=== PATIENT | female | born 1945 | race Caucasian/White ===

== ENCOUNTER → 2017-02-06 | Day surgery (SDC) | payer OTHER ==
[~2017-02-06] MED LIST: ALLEGRA PO; ASPIRIN81 MG PO; FISH OIL 1,0001 EAC1 PO; FLONASE 0.05% N16 G1; LISINOPRIL10 MG PO; MOBIC15 MG PO; MONTELUKAST SOD10 MG PO; MUCUS RELIEF C400 MG PO; NATURAL VITA400 UNI2 PO; NIACIN ER500 MG PO; PULMICORT0.25 MG/2 INH; SIMVASTATIN40 MG PO; STOOL SOFTENER100 M1 PO; VITAMIN B-COMP1 EAC2 PO; VITAMIN D-32000 UNI2 PO
--- NOTE | ~2017-02-06 | OR ---
Unit #: [id number] #: [id number] Patient: NICHOLE SHAIKH [id number] [address] [place], [place] [address] [id number] MR#: [id number] NAME: NICHOLE SHAIKH ROOM: Date of Procedure: 02/06/2017 Admission Date: 02/06/2017 Surgeon: Angel Ely M.D. : 1945 Attending Physician: Angel Ely M.D. Primary Care Physician: Ulysses Parra M.D. OPERATIVE REPORT PREOPERATIVE DIAGNOSIS Screening colonoscopy. POSTOPERATIVE DIAGNOSES 1. Rare sigmoid diverticulum. 2. Rectal polyp less than 0.2 cm. PROCEDURE PERFORMED 1. Colonoscopy to cecum. 2. Cold biopsy excision of rectal polyp. ANESTHESIA IV sedation. COMPLICATIONS None. INDICATIONS The patient is a 71-year-old lady, who presents for screening colonoscopy. DESCRIPTION OF PROCEDURE The patient was taken to the operative theater and placed in left lateral decubitus position. IV sedation was initiated. Digital rectal exam was normal. Colonoscope was then passed under direct vision and navigated to the cecum. The patient had excellent prep. I visualized the entire colon. She had rare diverticulum throughout the colon. A small polyp less than 0.2 cm in the rectum. This was removed in its entirety with cold biopsy. Hemostasis was adequate. The patient tolerated the procedure well and sent to recovery room in good condition. PLAN We will follow up on biopsy. We will continue with Colace on a daily basis. Dictated by... Jyoti Valle/aide TD: 02/06/2017 16:58 Unit #: [id number] #: [id number] Patient: NICHOLE SHAIKH JOB #: [id number] OPERATIVE REPORT Page 1 of 1 X Angel Ely MD X PROCEDURE OPERATIVE NOTE
== END | disposition home or self-care (01) ==
LOC: COPS 10:24
PROVIDERS: Surgery
PROC: 0DBP8ZX Excision of Rectum, Via Natural or Artificial Opening Endoscopic, Diagnostic (ICD-10-PCS; principal; 2017-02-06 12:30)
DX: Z12.11 Encounter for screening for malignant neoplasm of colon (principal); K57.30 Diverticulosis of large intestine without perforation or abscess without bleeding; K62.1 Rectal polyp; I10 Essential (primary) hypertension; E78.00 Pure hypercholesterolemia, unspecified; J45.909 Unspecified asthma, uncomplicated; M19.90 Unspecified osteoarthritis, unspecified site; Z87.442 Personal history of urinary calculi; Z82.61 Family history of arthritis; Z81.1 Family history of alcohol abuse and dependence; Z98.51 Tubal ligation status; Z98.890 Other specified postprocedural states; Z88.8 Allergy status to other drugs, medicaments and biological substances; Z88.6 Allergy status to analgesic agent
CPT/HCPCS: 88305